=== PATIENT | female | born 1955 | race Caucasian/White ===

== ENCOUNTER → 2018-06-13 15:22 | Outpatient (CLI) | payer MEDICARE, SELFPAY ==
--- NOTE | 2018-06-13 15:33 | XR_ITS ---
EXAM: XR lumbar spine 6V w bending HISTORY: ITS.REASON: CHRONIC MIDLINE LOW BACK PAIN W/O SCIATICA; FLEXION EXTENS ORDERING PHYSICIAN: Referral Provider, PATIENT AGE: 63 years COMPARISON: None FINDINGS: There is normal alignment. No fracture or dislocation is evident. No lytic or blastic change. 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 Mild facet arthritic changes are present at the lumbosacral junction. There are slight decrease in the disc space at L3-L4 and L4-L5 suggesting mild degenerative disc disease. There is normal alignment. Flexion and extension views show no evidence of abnormal subluxation. Diffuse vascular calcification is noted. IMPRESSION: Mild degenerative disc disease L3-L4 and L4-5 and mild facet arthritic changes L5-S1 No abnormal subluxation in flexion or extension
== END ==
PROVIDERS: PCP Internal Medicine; Visit Provider Internal Medicine
DX: M54.5 Low back pain (principal)
CPT/HCPCS: 72114

== ENCOUNTER → 2022-10-19 10:00 | Outpatient (CLI) | payer MEDICARE, SELFPAY | PROVIDERS: PCP Nurse Practitioner Family; Visit Provider Nurse Practitioner Family | DX: R05.9 Cough, unspecified (principal) ==